=== PATIENT | female | born 1980 | race Caucasian/White ===

== ENCOUNTER 2017-03-06 19:16 | Emergency (ER) | payer MEDICAID ==
[~2017-03-06] VITALS: Ht 177.8 cm; Wt 57.2 kg
[2017-03-06 19:58] LABS: CONDITION Y; DEFINITIVE SEE PRINTOUT; Hematocrit 28.7 % (36.0-46.0); Hemoglobin 9.6 g/dL (12.2-16.2); Mean Corpuscular Hemoglobin 24.6 pg (28.0-32.0); Mean Corpuscular Hgb Conc. 33.3 g/dL (32.0-36.0); Mean Corpuscular Volume 73.8 fL (80.0-100.0); Mean Platelet Volume 6.8 fL (7.4-10.4); Red Cell Distribution Width 17.1 % (11.6-16.0); SUSPECT SEE PRINTOUT; White Blood Cell 26.3 10^3/uL (4.4-10.8)
[2017-03-06 20:04] LABS: Urine Bilirubin Negative (Negative); Urine Color Yellow (Yellow); Urine Glucose Normal (Normal); Urine Ketone Negative (Negative); Urine Nitrite Negative (Negative); Urine RBC 12 /hpf (0 - 4); Urine Squamous Epithelial Cell FEW /hpf (<5); Urine Urobilinogen Normal (Negative)
[2017-03-06 20:12] LABS: Metamyelocytes % 0; Myelocytes % 0; Platelet Count (auto) 959 10^3/uL (140-450); Promyelocytes % 0; Reactive Lymphocytes 0
[2017-03-06 20:18] LABS: Albumin 2.5 g/dL (3.4-5.0); BUN/Creatinine Ratio 10.3; Bilirubin, Total 0.5 mg/dL (0.2-1.0); Calcium 8.9 mg/dL (8.5-10.1); Magnesium 2.4 mg/dL (1.6-2.6); Total Protein 7.6 g/dL (6.4-8.2)
[2017-03-06 20:22] LABS: Hypochromia Moderate
[2017-03-06 20:24] LABS: Stomatocytes Few
[2017-03-06 20:26] LABS: Large Platelets FEW; Ovalocytes FEW; Platelet Clumps FEW; Platelet Estimate Marked
[2017-03-06 20:27] LABS: Polychromasia Slight
[2017-03-06 20:33] LABS: Urine Blood 2+ /uL (Negative)
[2017-03-07] MEDS ORDERED: SODIUM CHLORIDE 0.9% 1,000 ML IV ONE (02:30)
[2017-03-07] MEDS ORDERED: MORPHINE SULFATE 4 MG/ML SYRG IV ONE (05:15)
[2017-03-07] MEDS ORDERED: ONDANSETRON HCL 4 MG/2 ML VIAL IV ONE (05:15)
[2017-03-07] MEDS ORDERED: cefTRIAXone 1GM/50ML D5W 50 ML IV ONE (05:15)
[2017-03-07] MEDS ORDERED: ONDANSETRON HCL 4 MG/2 ML VIAL ONE (05:21)
[2017-03-07] MEDS ORDERED: POTASSIUM CHL 10% (20 MEQ/15ML) ORAL SOLN PO ONE (11:00)
[2017-03-07 15:35] VITALS: BP 99/61
== END 2017-03-07 15:39 | disposition short-term general hospital (02) ==
LOC: ER 19:18
DX: A41.9 Sepsis, unspecified organism (principal); R19.00 Intra-abdominal and pelvic swelling, mass and lump, unspecified site; N13.4 Hydroureter; N13.30 Unspecified hydronephrosis; F17.210 Nicotine dependence, cigarettes, uncomplicated; N39.0 Urinary tract infection, site not specified; E86.0 Dehydration; D72.829 Elevated white blood cell count, unspecified; E87.6 Hypokalemia; E43 Unspecified severe protein-calorie malnutrition; Z68.1 Body mass index [BMI] 19.9 or less, adult; Z88.0 Allergy status to penicillin; Z88.1 Allergy status to other antibiotic agents; Z88.8 Allergy status to other drugs, medicaments and biological substances
CPT/HCPCS: 36415; 74176; 76856; 80053; 81001; 81025; 82150; 83605; 83690; 83735; 84702; 85007; 85027; 87040; 96361; 96365; 96375; 99285; J0696; J2270; J2405; J7030